=== PATIENT | female | born 1965 | race Two or more races ===

== ENCOUNTER 2024-07-29 16:04 | Emergency (ER) | payer OTHER ==
[~2024-07-29] VITALS: Ht 165.1 cm; Wt 86.2 kg
[2024-07-29] MEDS: predniSONE 20 MG TAB PO ONE (17:10)
[2024-07-29] MEDS: ACYCLOVIR 400 MG TAB PO ONE (17:11)
[2024-07-29] MEDS: HYDROcodone-ACET 5/325MG TAB PO ONE (17:11)
[2024-07-29 17:25] LABS: Basophils # (auto) 0 10 ^3/uL (0-0.2); Basophils % (auto) 0.4 % (0.0-2.0); Eosinophils # (auto) 0.5 10 ^3/uL (0-0.8); Eosinophils % (auto) 5.9 % (0.0-7.0); Hematocrit 39.9 % (36.0-46.0); Hemoglobin 13.7 g/dL (12.2-16.2); Lymphocytes # (auto) 2.4 10 ^3/uL (0.4-5.4); Lymphocytes % (auto) 30.2 % (10.0-50.0); Mean Corpuscular Hemoglobin 29.5 pg (28.0-32.0); Mean Corpuscular Hgb Conc. 34.4 g/dL (32.0-36.0); Mean Corpuscular Volume 85.7 fL (80.0-100.0); Monocytes # (auto) 0.4 10 ^3/uL (0-1.3); Monocytes % (auto) 5.3 % (0.0-12.0); Neutrophils # (auto) 4.7 10 ^3/uL (1.6-8.6); Neutrophils % (auto) 58.2 % (37.0-80.0); Platelet Count (auto) 316 10^3/uL (140-450); Red Blood Cells 4.66 10^6/uL (4.0-5.20); Red Cell Distribution Width 12.7 % (11.8-14.3)
[2024-07-29 17:38] LABS: Alanine Aminotransferase 29 U/L (7-40); Albumin 4.7 g/dL (3.2-4.8); Alkaline Phosphatase 130 U/L (46-116); Anion Gap 7 (5-15); Aspartate Aminotransferase 18 U/L (13-40); Bilirubin, Total 0.4 mg/dL (0.2-1.0); Blood Urea Nitrogen 16 mg/dL (9-23); Calcium 10.5 mg/dL (8.7-10.4); Carbon Dioxide 32 mmol/L (20-31); Chloride 98 mmol/L (98-107); Glucose 289 mg/dL (74-106); Potassium 4.2 mmol/L (3.5-5.1); Sodium 137 mmol/L (136-145); Total Protein 7.2 g/dL (5.7-8.2)
[2024-07-29] MEDS: LABETALOL HCL 20 MG/4 ML VL IV ONE (18:39)
[2024-07-29] MEDS: SODIUM CHLORIDE 0.9% 1,000 ML IV ONE (20:24)
[2024-07-29] MEDS ORDERED: ACYC400T16 PO (20:30)
[2024-07-29] MEDS ORDERED: PRED20TA2 PO (20:30)
[2024-07-29 21:48] VITALS: BP 150/72; PULSE 70; RESP 20; TEMP 98.6; O2SAT 96
== END 2024-07-29 21:50 | disposition home or self-care (01) ==
LOC: ER 16:04
DX: G51.0 Bell's palsy (principal); I10 Essential (primary) hypertension; E11.9 Type 2 diabetes mellitus without complications; G43.909 Migraine, unspecified, not intractable, without status migrainosus; Z90.49 Acquired absence of other specified parts of digestive tract; Z98.51 Tubal ligation status
CPT/HCPCS: 36415; 70450; 71045; 72125; 80053; 82962; 84484; 85025; 93005; 96360; 99284; J7030; J7512